=== PATIENT | male | born 1965 | race Two or more races ===

== ENCOUNTER → 2017-04-16 | Outpatient (REF) | payer OTHER ==
[2017-04-16 19:02] LABS: BASO % 0.5 % (0.0-1.0); EOS # 0.3 10^3/uL (0.0-0.50); EOS % 4.7 % (0.0-3.0); IMMATURE GRANULOCYTE % 0.2 % (0-0); LYMPH # 1.6 10^3/uL (1.5-4.5); LYMPH % 26.7 % (24.0-44.0); MEAN CORPUSCULAR HEMOGLOBIN 30.5 pg (27.0-33.0); MEAN CORPUSCULAR HGB CONC 32.6 g/dl (32.0-36.5); MEAN CORPUSCULAR VOLUME 93.5 fl (80.0-96.0); MONO # 0.7 10^3/uL (0.0-0.8); MONO % 11.6 % (0.0-5.0); NEUTROPHILS # 3.4 10^3/uL (1.8-7.7); NEUTROPHILS % 56.3 % (36.0-66.0); PLATELET COUNT, AUTOMATED 281 10^3/uL (150-450); RED CELL DISTRIBUTION WIDTH 12.3 % (11.5-14.5)
[2017-04-16 19:15] LABS: ALBUMIN 3.5 GM/DL (3.2-5.2); ALBUMIN/GLOBULIN RATIO 1.06 (1.00-1.93); ALKALINE PHOSPHATASE 65 U/L (45-117); ALT/SGPT 33 U/L (12-78); ANION GAP 7 MEQ/L (8-16); AST/SGOT 19 U/L (7-37); BILIRUBIN,TOTAL 0.5 MG/DL (0.2-1.0); BLOOD UREA NITROGEN 10 MG/DL (7-18); CALCIUM LEVEL 8.4 MG/DL (8.5-10.1); CARBON DIOXIDE LEVEL 28 MEQ/L (21-32); CHLORIDE LEVEL 107 MEQ/L (98-107); CHOLESTEROL LEVEL 102 MG/DL (<200); CREATININE FOR GFR 0.96 MG/DL (0.70-1.30); FREE T4 1.02 NG/DL (0.76-1.46); GLOMERULAR FILTRATION RATE > 60.0 (>56); GLUCOSE, FASTING 88 MG/DL (70-105); POTASSIUM SERUM 4.4 MEQ/L (3.5-5.1); SODIUM LEVEL 142 MEQ/L (136-145); TOTAL PROTEIN 6.8 GM/DL (6.4-8.2); TRIGLYCERIDES LEVEL 153 MG/DL (<150)
[2017-04-16 20:37] LABS: MICROSCOPIC INDICATED? MAN YES (NO)
[2017-04-16 20:46] LABS: BACTERIA, URINE NONE SEEN; HYALINE CAST, URINE NONE SEEN /lpf (0-1)
[2017-04-16 20:47] LABS: RBC, URINE 0-1 /hpf (0-3); SQUAMOUS EPITHELIAL CELL URINE SMALL AMOUNT /hpf (SMALL AMT)
[2017-04-16 20:48] LABS: MICROSCOPIC EXAM PERFORMED; WBC, URINE 0-1 /hpf (0-3)
== END ==
LOC: M SFHCCAPE 07:07
PROVIDERS: ATTEND Physician Assistant
DX: Z13.6 Encounter for screening for cardiovascular disorders (principal); Z12.5 Encounter for screening for malignant neoplasm of prostate
CPT/HCPCS: 80053; 80061; 81000; 81015; 84439; 84443; 85025; G0103

== ENCOUNTER 2017-05-13 09:28 | Day surgery (SDC) | payer OTHER ==
[~2017-05-13] VITALS: Ht 190.5 cm; Wt 100.7 kg
[~2017-05-13 09:28] MED LIST: NO MEDICATIONS
[2017-05-13] MEDS ORDERED: LR 1,000 ML IV ONE (09:45)
[2017-05-13] MEDS ORDERED: MIDAZOLAM INJ 2 MG/2 ML VIAL (J2250) As Ordered ONE (12:31)
[2017-05-13] MEDS ORDERED: PROPOFOL 200 MG/20 ML VIAL As Ordered ONE ×3 (12:31→13:39)
[2017-05-13] MEDS ORDERED: fentaNYL 100 MCG/2 ML INJECTION (J3010) As Ordered ONE (12:31)
[2017-05-13] MEDS ORDERED: LIDOCAINE W/EPINEPHRINE 1% 20ML VIAL As Ordered ONE (12:34)
[2017-05-13] MEDS ORDERED: LIDOCAINE 2% INJ 100 MG/5 ML SDV (FOR ANES.) As Ordered ONE (12:38)
[2017-05-13 14:20] VITALS: BP 146/94
--- NOTE | 2017-05-13 14:37 | ROOPDOC ---
[facility] Report Of Operation Report of Operation DATE OF PROCEDURE: 05/13/17 PREPROCEDURE DIAGNOSES: Encounter for screening for Colorectal Cancer Hemorrhoidal skin tag POSTPROCEDURE DIAGNOSES: Encounter for screenign for colorectal cancer Hemorrhoidal skin tag. PROCEDURE: Colonoscopy to terminal ileum with snare polypectomy Excision of Hemorrhoidal tag. SURGEON: Jason Castaneda MD [employer] ASSEMBLER: ANESTHESIA: monitored anesthesia care, with local anesthesia with 1% lidocaine with epinephrine. ESTIMATED BLOOD LOSS: Approximately 5 mL. COMPLICATIONS: None. REMARKS: Patient tolerated procedure well. PROCEDURE NOTE: 52-year-old gentleman with no ongoing abdominal symptoms, changes in bowel habits, unexplained weight loss. He . is brought in today for colonoscopy as part of colorectal cancer screening. He has a redundant hemorrhoidal tag on the right lateral rim of the anal verge that he would also like to be removed at the same time. DESCRIPTION OF PROCEDURE: Patient was brought to the operating room and placed on the left lateral decubitus position. After placement of monitoring leads, monitored anesthesia care provided and IV sedation started. Surgical timeout was performed prior to starting for surgery. The Olympus video colonoscope 190HL was introduced under direct vision through the anal opening after digital rectal examination and under direct visualization directed forward through to the colon until the cecum and terminal ileum was identified. It was able to intubate the ileocecal valve up through to about 10 cm to the terminal ileum. The scope was then withdrawn slowly and the colonic mucosa was examined carefully. No evidence for diverticulosis or masses found. Withdrawal time was 12 minutes. At the proximal rectum a 1.5 cm lobulated, pedunculated polyp was identified and removed via hot snare. On retroflexion, the rectal opening and mucosa appears normal. The strap cope was fully withdrawn. With the patient remaining on the left lateral decubitus position the anal verge was prepped with Betadine and sterile drapes were placed. He has a redundant hemorrhoidal tag over the right side of the anal verge. The base was infiltrated with local anesthesia using 1% lidocaine with epinephrine. The base was then excised with with small hemorrhoidal vessels with it. Hemostasis performed with Bovie cautery. The incision was then closed with a running suture of 3-0 chromic. Dry gauze dressing and a surgical postop underwear then used to hold the dressings. Patient was then brought to the recovery room in stable condition. JASON CASTANEDA MD May 13, 2017 14:37
== END 2017-05-13 14:30 | disposition home or self-care (01) ==
LOC: M SDC 09:28
PROVIDERS: ATTEND Surgery
DX: Z12.11 Encounter for screening for malignant neoplasm of colon (principal); D12.8 Benign neoplasm of rectum; K64.4 Residual hemorrhoidal skin tags; K21.9 Gastro-esophageal reflux disease without esophagitis
CPT/HCPCS: 45385; 88305; J2250; J3010

== ENCOUNTER → 2017-10-05 | Outpatient (CLI) | payer OTHER ==
[2017-10-05 16:57] LABS: URIC ACID 7.8 MG/DL (3.5-7.2)
== END ==
LOC: M WUC 11:48
DX: M79.671 Pain in right foot (principal)

== ENCOUNTER → 2018-09-11 | Outpatient (CLI) | payer BC, OTHER ==
--- NOTE | 2018-09-11 16:09 | REP ---
Left shoulder: Three views. History: Left shoulder pain. Findings: The left glenohumeral and acromioclavicular joints are normally aligned. There is mild AC joint hypertrophy consistent with early osteoarthritis. Periarticular soft tissues are unremarkable. Minimal inferior glenoid spurring is also noted. Impression: Mild osteoarthritis at the AC joint and inferior glenoid spurring. No acute bony abnormality. Electronically Signed by Humphrey Sierra MD 09/11/2018 04:01 P
== END ==
LOC: M WUC 15:47
PROVIDERS: ATTEND Physician Assistant
DX: M25.512 Pain in left shoulder (principal); M19.012 Primary osteoarthritis, left shoulder

== ENCOUNTER 2022-07-08 22:49 | Emergency (ER) | payer BC, OTHER ==
[~2022-07-08] VITALS: Ht 188 cm; Wt 102.3 kg
[2022-07-08 22:49] VITALS: BP 144/92
[2022-07-08] MEDS ORDERED: ACETAMINOPHEN TAB 650MG DOSE (2X325MG) PO ONE (23:45)
[2022-07-09] MEDS ORDERED: ONDA4TAB6 PO (01:00)
== END 2022-07-09 01:35 | disposition home or self-care (01) ==
LOC: M ED 22:49
DX: S06.0X0A Concussion without loss of consciousness, initial encounter (principal); W19.XXXA Unspecified fall, initial encounter; Y93.22 Activity, ice hockey; Z88.0 Allergy status to penicillin

== ENCOUNTER → 2023-01-06 | Outpatient (CLI) | payer BC, OTHER ==
[~2023-01-06] MED LIST changes: +ONDA4TAB6 PO
== END ==
LOC: M WUC 15:26
PROVIDERS: ATTEND Physician Assistant
DX: M25.551 Pain in right hip (principal); M25.511 Pain in right shoulder

== ENCOUNTER → 2024-08-22 | Outpatient (CLI) | payer BC, OTHER ==
[~2024-08-22] MED LIST changes: +ONDA-282 PO; -ONDA4TAB6 PO
[2024-08-22 18:12] LABS: APPEARANCE, URINE CLEAR (CLEAR); BACTERIA, URINE AUTO NEGATIVE (NEGATIVE); BILIRUBIN, URINE AUTO NEGATIVE (NEGATIVE); BLOOD, URINE BLOOD NEGATIVE (NEGATIVE); COLOR, URINE YELLOW (YELLOW); GLUCOSE, URINE (UA) AUTO NEGATIVE (NEGATIVE); KETONE, URINE AUTO NEGATIVE (NEGATIVE); LEUKOCYTE ESTERASE, URINE AUTO NEGATIVE (NEGATIVE); NITRITE, URINE AUTO NEGATIVE (NEGATIVE); PROTEIN, URINE AUTO NEGATIVE (NEGATIVE); RBC, URINE AUTO 1 /HPF (0-3); SPECIFIC GRAVITY URINE AUTO 1.018 (1.002-1.035); SQUAMOUS EPITHELIAL CELL UR AU 0 /HPF (0-6); UROBILINOGEN, URINE AUTO 0.2 mg/dL (0.0-2.0); WBC, URINE AUTO 0 /HPF (0-3)
[2024-08-22 18:27] LABS: HEMATOCRIT 49.1 % (42.0-52.0); HEMOGLOBIN 16.5 g/dl (13.5-17.5); MEAN CORPUSCULAR HEMOGLOBIN 32.1 pg (27.0-33.0); MEAN CORPUSCULAR HGB CONC 33.6 g/dl (32.0-36.5); MEAN CORPUSCULAR VOLUME 95.5 fl (80.0-96.0); PLATELET COUNT, AUTOMATED 299 10^3/uL (150-450); RED BLOOD COUNT 5.14 10^6/uL (4.30-6.10)
[2024-08-22 18:54] LABS: ALKALINE PHOSPHATASE 65 U/L (40-129); ALT/SGPT 42 U/L (7.0-40); AST/SGOT 26 U/L (<34); BILIRUBIN,TOTAL 0.4 MG/DL (0.3-1.2); BLOOD UREA NITROGEN 14 MG/DL (9-23); CALCIUM LEVEL 9.7 MG/DL (8.5-10.1); CARBON DIOXIDE LEVEL 30 MMOL/L (20-31); CHLORIDE LEVEL 103 MMOL/L (98-107); CREATININE FOR GFR 0.83 MG/DL (0.70-1.30); GLOMERULAR FILTRATION RATE > 60.0 (>56); GLUCOSE, FASTING 80 MG/DL (60-100); POTASSIUM SERUM 4.8 MMOL/L (3.5-5.1); SODIUM LEVEL 143 MMOL/L (136-145); TOTAL PROTEIN 7.5 G/DL (5.7-8.2)
[2024-08-22 18:57] LABS: PROSTATIC SPECIFIC AG MONITOR 0.49 NG/ML (< 4.00)
[2024-08-22 19:07] LABS: URIC ACID 7.5 MG/DL (3.7-9.2)
[2024-08-23 06:51] LABS: WHITE BLOOD COUNT 8.3 10^3/uL (4.0-10.0)
== END ==
LOC: M WUC 15:07
PROVIDERS: ATTEND Physician Assistant
DX: M10.9 Gout, unspecified (principal); R35.1 Nocturia; Z86.0100 Personal history of colon polyps, unspecified